=== PATIENT | male | born 1965 | race Caucasian/White ===

== ENCOUNTER 2023-12-26 19:55 | Emergency (ER) | payer BC ==
[2023-12-26 20:03] VITALS: BP 136/88; PULSE 60; RESP 16; TEMP 97.7; BMI 28.6
[2023-12-26] MEDS: DIPHTH,PERTUSS(ACELL),TET 0.5 ML DISP.SYRIN IM ONE (20:23)
[2023-12-26] MEDS ORDERED: AMOX TR/POT CLAV 500MG/125MG TABLETS (FP) ONE (20:58)
[2023-12-26] MEDS: AMOX TR/POT CLAV 500MG/125MG TABLETS (FP) PO ONE (21:01)
== END 2023-12-26 21:04 | disposition home or self-care (01) ==
LOC: FER 19:55
PROC: 3E0234Z Introduction of Serum, Toxoid and Vaccine into Muscle, Percutaneous Approach (ICD-10-PCS; principal; 2023-12-26)
DX: S61.412A Laceration without foreign body of left hand, initial encounter (principal); W27.8XXA Contact with other nonpowered hand tool, initial encounter
CPT/HCPCS: 73130-TC-LT-FY; 90715; 99284-25